=== PATIENT | male | born 2000 | race Two or more races ===

== ENCOUNTER 2019-02-22 07:07 | Emergency (ER) | payer OTHER ==
[~2019-02-22] VITALS: Ht 177.8 cm; Wt 83.9 kg
[2019-02-22 07:17] VITALS: BP 148/69
[2019-02-22] MEDS ORDERED: LIDOCAINE 1% Multi-Dose 20 ML VIAL. INJ ONE (07:45)
--- NOTE | 2019-02-22 08:16 | PHYS DOC ---
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 He states he's had a tetanus shot sometime within the last 5 years. He denies any other injuries. It's the pain is very minimal. He states he's able to make a fist and extend his fingers without difficulty.[] Review of Systems Review of Systems Constitutional: Denies fever or chills [] Eyes: Denies change in visual acuity, redness, or eye pain [] HENT: Denies nasal congestion or sore throat [] Respiratory: Denies cough or shortness of breath [] Cardiovascular: No additional information not addressed in HPI [] GI: Denies abdominal pain, nausea, vomiting, bloody stools or diarrhea [] : Denies dysuria or hematuria [] Musculoskeletal: Denies back pain or joint pain [] Integument: Per history of present illness[] Neurologic: Denies headache, focal weakness or sensory changes [] Endocrine: Denies polyuria or polydipsia [] All other systems were reviewed and found to be within normal limits, except as documented in this note. Current Medications Current Medications Current Medications Medications (Trade) Dose Ordered Sig/[facility] Start Time Stop Time Status Last Admin Dose Admin Lidocaine HCl (Lidocaine 1% 20ml Vial) 20 ml 1X ONCE 02/22/19 07:45 02/22/19 07:46 DC 02/22/19 07:41 20 ML Allergies Allergies Allergies Coded Allergies Type Severity Reaction Last Updated Verified No Known Drug Allergies 02/22/19 No Physical Exam Physical Exam Constitutional: Well developed, well nourished, no acute distress, non-toxic appearance. [] HENT: Normocephalic, atraumatic, bilateral external ears normal, oropharynx moist, no oral exudates, nose normal. [] Eyes: PERRLA, EOMI, conjunctiva normal, no discharge. [] Neck: Normal range of motion, no tenderness, supple, no stridor. [] Cardiovascular:Heart rate regular rhythm, no murmur [] Lungs & Thorax: Bilateral breath sounds clear to auscultation [] Abdomen: Bowel sounds normal, soft, no tenderness, no masses, no pulsatile masses. [] Skin: He has a 2 cm superficial laceration over the proximal phalanx on the extensor side of the left index finger. [] Back: No tenderness, no CVA tenderness. [] Extremities: Patient is able to flex and extend his left index finger without difficulty] Neurologic: Alert and oriented X 3, normal motor function, normal sensory function, no focal deficits noted. [] Psychologic: Affect normal, judgement normal, mood normal. [] Current Patient Data Vital Signs Vital Signs Date Time Temp Pulse Resp B/P (MAP) Pulse Ox O2 Delivery O2 Flow Rate FiO2 02/22/19 07:17 98.5 69 16 148/69 (95) 98 Room Air 98.5 EKG EKG [] Radiology/Procedures Radiology/Procedures ] Course & Med Decision Making Course & Med Decision Making Pertinent Labs and Imaging studies reviewed. (See chart for details) [[Procedure: Laceration repair The patient's finger was prepped and draped in a sterile fashion and then using 6 mL of 1% lidocaine a digital block was performed with excellent anesthesia. The wound was inspected for foreign bodies none were found. Then using 5-0 Ethilon 3 simple interrupted sutures were placed with excellent approximation of the wound edges. Patient tolerated the procedure well] Dragon Disclaimer Dragon Disclaimer This electronic medical record was generated, in whole or in part, using a voice recognition dictation system. Departure Departure Impression: Primary Impression: Laceration of finger of left hand without foreign body Disposition: 01 HOME, SELF-CARE Condition: IMPROVED Referrals: KERON WINCHESTER MD (PCP) Patient Instructions: Laceration Care, Adult Additional Instructions: You'll need her sutures removed in 7 days. Keep the wound clean and dry. Return to the emergency department with any new or concerning symptoms Problem Qualifiers Primary Impression: Laceration of finger of left hand without foreign body Encounter type: initial encounter Finger: index finger Damage to nail status: without damage Qualified Codes: S61.211A - Laceration without foreign body of left index finger without damage to nail, initial encounter FRANNIE NORRIS DO Feb 22, 2019 08:16
== END 2019-02-22 08:38 | disposition home or self-care (01) ==
LOC: ER 07:07
DX: S61.211A Laceration without foreign body of left index finger without damage to nail, initial encounter (principal); W26.8XXA Contact with other sharp object(s), not elsewhere classified, initial encounter; Y93.89 Activity, other specified; Y92.89 Other specified places as the place of occurrence of the external cause; Y99.0 Civilian activity done for income or pay
CPT/HCPCS: 12001; 99283

== ENCOUNTER 2019-03-04 08:15 | Emergency (ER) | payer OTHER ==
[~2019-03-04] VITALS: Ht 177.8 cm; Wt 83.9 kg
[2019-03-04 08:24] VITALS: BP 131/62
--- NOTE | 2019-03-04 08:34 | PHYS DOC ---
Past Medical History Past Medical History: No Pertinent History Past Surgical History: No Surgical History Alcohol Use: None Drug Use: None Adult General Chief Complaint Chief Complaint: SUTURE/STAPLE REMOVAL HPI HPI Patient is a 18 year old male who presents for suture removal. Patient had left index finger laceration and 3 sutures placement on February 22 in this emergency room. Patient denies pain, discharge, erythema of laceration area. Patient is up-to-date with tetanus immunization. Review of Systems Review of Systems Constitutional: Denies fever or chills [] Eyes: Denies change in visual acuity, redness, or eye pain [] HENT: Denies nasal congestion or sore throat [] Respiratory: Denies cough or shortness of breath [] Cardiovascular: No additional information not addressed in HPI [] GI: Denies abdominal pain, nausea, vomiting, bloody stools or diarrhea [] : Denies dysuria or hematuria [] Musculoskeletal: Denies back pain or joint pain [] Integument: Denies rash or skin lesions [] Neurologic: Denies headache, focal weakness or sensory changes [] Endocrine: Denies polyuria or polydipsia [] All other systems were reviewed and found to be within normal limits, except as documented in this note. Allergies Allergies Allergies Coded Allergies Type Severity Reaction Last Updated Verified No Known Drug Allergies 02/22/19 No Physical Exam Physical Exam Constitutional: Well developed, well nourished, no acute distress, non-toxic appearance. [] HENT: Normocephalic, atraumatic Neck: Normal range of motion, no tenderness, supple, no stridor. [] Cardiovascular:Heart rate regular rhythm, no murmur [] Lungs & Thorax: Bilateral breath sounds clear to auscultation [] Extremities: Well healed three sutured ration of dorsal side of proximal part of proximal phalanx of left index finger without problem, no tenderness, no cyanosis, no clubbing, ROM intact, no edema. [] Neurologic: Alert and oriented X 3, normal motor function, normal sensory function, no focal deficits noted. [] Psychologic: Affect normal, judgement normal, mood normal. [] Current Patient Data Vital Signs Vital Signs Date Time Temp Pulse Resp B/P (MAP) Pulse Ox O2 Delivery O2 Flow Rate FiO2 03/04/19 08:24 98.1 72 17 131/62 (85) 98 Room Air 98.1 EKG EKG [] Radiology/Procedures Radiology/Procedures [] Course & Med Decision Making Course & Med Decision Making Evaluation of patient in ER showed 18-year-old male patient presented to ER for suture removal that was placed on February 22 without problem. 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 Holly Disclaimer Dragon Disclaimer This electronic medical record was generated, in whole or in part, using a voice recognition dictation system. Departure Departure Impression: Primary Impression: Encounter for removal of sutures Disposition: HOME, SELF-CARE (at 0 [phone]) Condition: STABLE Referrals: KERON WINCHESTER MD (PCP) Patient Instructions: Suture Removal Additional Instructions: Keep wound clean and dry Follow-up with your primary care physician in 3-5 days or as needed Return to ER if not getting better LIZA BALLESTEROS MD Mar 04, 2019 08:34
== END 2019-03-04 09:05 | disposition home or self-care (01) ==
LOC: ER 08:15
DX: S61.211D Laceration without foreign body of left index finger without damage to nail, subsequent encounter (principal); X58.XXXD Exposure to other specified factors, subsequent encounter
CPT/HCPCS: 99281

== ENCOUNTER 2019-05-27 16:01 | Emergency (ER) | payer OTHER ==
[~2019-05-27] VITALS: Ht 175.3 cm; Wt 86.2 kg
[2019-05-27 16:24] VITALS: BP 145/74
--- NOTE | 2019-05-27 16:29 | PHYS DOC ---
Past Medical History Past Medical History: No Pertinent History Past Surgical History: No Surgical History Alcohol Use: None Drug Use: None Adult General Chief Complaint Chief Complaint: LOWEREXTREMITY INJURY HPI HPI Patient is a 19 year old Male who presents with patient states he was reaching for the door of his car today at 1515 when he slipped and caught herself on the door of his car. Patient complains of lui pain and lateral left leg pain that is tingling, sharp and shooting. Patient states when he bends his knee can feel pressure in the mid leg and also when he moves at the ankle can fill pressure. Patient rates his pain a 4 out of 10. Patient refuses any pain medication at this time. Patient states he can put some weight on it but it is painful. Review of Systems Review of Systems Musculoskeletal: Left lateral and anterior lower leg pain. Denies back pain or joint pain [] Integument: Abrasion to left middle lui. Denies rash or skin lesions [] All other systems were reviewed and found to be within normal limits, except as documented in this note. Allergies Allergies Allergies Coded Allergies Type Severity Reaction Last Updated Verified No Known Drug Allergies 02/22/19 No Physical Exam Physical Exam Constitutional: Well developed, well nourished, no acute distress, non-toxic appearance. [] Skin: Mid lui abrasion. Warm, dry, no erythema, no rash. [] Extremities: Left anterior lui tenderness, no cyanosis, no clubbing, Knee and ankle limited ROM due to radiation of pain, 1+ edema to anterior middle lui. [] Neurologic: Alert and oriented X 3, normal motor function, normal sensory function, no focal deficits noted. [] Psychologic: Affect normal, judgement normal, mood normal. [] Current Patient Data Vital Signs Vital Signs Date Time Temp Pulse Resp B/P (MAP) Pulse Ox O2 Delivery O2 Flow Rate FiO2 05/27/19 16:24 98.0 65 16 145/74 (97) 98 Room Air 98.0 EKG EKG [] Radiology/Procedures Radiology/Procedures [] Impressions: [facility] [address] [place] [address] IMAGING REPORT Signed PATIENT: ALYSA DOTY MACCOUNT: [id number] : 2000 LOCATION: ER AGE: 19 SEX: M EXAM STATUS: REG ER ORD. PHYSICIAN: DORIS BANG APRN REASON: FALL, PAIN PROCEDURE: TIBIA FIBULA LEFT EXAM: Left tibia and fibula, 2 views; left knee, 3 views; left ankle, 3 views. HISTORY: Trauma. COMPARISON: None. FINDINGS: 2 views of the tibia and fibula, 3 views of the ankle and 3 views of the knee are obtained. There is no fracture, dislocation or subluxation. There is no lytic or sclerotic osseous lesion. There is no knee effusion. The ankle mortise is intact. There is suggestion of talocalcaneal coalition on the lateral tibia-fibula radiograph. This is not confirmed on dedicated ankle radiographs and is likely projectional. IMPRESSION: No acute osseous finding. Electronically signed by: Daya Max MD (05/27/2019 5:10 PM) [id number] DICTATED and SIGNED BY: DAYA MAX MD DATE: 05/27/191709 Course & Med Decision Making Course & Med Decision Making Alert and oriented. Skin pink warm and dry. There is mid lui abrasion but no bleeding and 1+ swelling. There is tenderness mid anterior lui. Pedal pulse present. Patient can wiggle toes. Cap refill < 3. No ankle pain or tenderness. No knee or ankle laxity. ROM of ankle is limited due to pain it causes to lateral left leg. ROM limited in left knee due to pressure felt in left lui and lateral leg. No calf tenderness. Dragon Disclaimer Dragon Disclaimer This electronic medical record was generated, in whole or in part, using a voice recognition dictation system. Departure Departure Impression: Primary Impression: Fall Additional Impression: Leg pain Disposition: HOME, SELF-CARE Condition: STABLE Referrals: KERON WINCHESTER MD (PCP) Patient Instructions: Contusion Additional Instructions: FOLLOW UP WITH PRIMARY CARE PROVIDER IF NEEDED. Problem Qualifiers Primary Impression: Fall Encounter type: initial encounter Qualified Codes: W19.XXXA - Unspecified fall, initial encounter Additional Impression: Leg pain Laterality: left Qualified Codes: M79.605 - Pain in left leg DORIS BANG APRN May 27, 2019 16:29
--- NOTE | 2019-05-27 17:13 | RAD ---
EXAM: Left tibia and fibula, 2 views; left knee, 3 views; left ankle, 3 views. HISTORY: Trauma. COMPARISON: None. FINDINGS: 2 views of the tibia and fibula, 3 views of the ankle and 3 views of the knee are obtained. There is no fracture, dislocation or subluxation. There is no lytic or sclerotic osseous lesion. There is no knee effusion. The ankle mortise is intact. There is suggestion of talocalcaneal coalition on the lateral tibia-fibula radiograph. This is not confirmed on dedicated ankle radiographs and is likely projectional. IMPRESSION: No acute osseous finding. Electronically signed by: Daya Guzman MD (05/27/2019 5:10 PM) [id number]
== END 2019-05-27 17:39 | disposition home or self-care (01) ==
LOC: ER 16:01
DX: S80.812A Abrasion, left lower leg, initial encounter (principal); R20.2 Paresthesia of skin; W18.39XA Other fall on same level, initial encounter; Y93.89 Activity, other specified; Y92.89 Other specified places as the place of occurrence of the external cause; Y99.8 Other external cause status
CPT/HCPCS: 73562; 73590; 73610; 99284